=== PATIENT | female | born 1960 | race African-American/Black ===

== ENCOUNTER 2018-10-08 10:00 | Inpatient (IN) | payer OTHER, MEDICAID ==
[~2018-10-08] VITALS: Ht 165.1 cm; Wt 152.0 kg
[2018-10-08 10:00] VITALS: BP 154/114
--- NOTE | 2018-10-08 10:07 | NUR ---
1869-- DR. SANTOS BEDSIDE
--- NOTE | 2018-10-08 10:07 | NUR ---
1001-- PT BIBA ALS TO ER BED 7
[2018-10-08] MEDS ORDERED: ONDANSETRON 4 MG/2 ML VIAL IVP ONE (10:10)
[2018-10-08] MEDS ORDERED: fentaNYL 0.05 MG/ML VIAL IVP ONE (10:10)
[2018-10-08] MEDS ORDERED: NACL 0.9% 1,000 ML IV ONE (10:10)
--- NOTE | 2018-10-08 10:15 | NUR ---
BIBA W C/O L FLANK PAIN 10/10, SHARP, STARTING ABOUT 1 HOUR AGO. PER PT, SHE HAD TO CLIMB OUT OF A WINDOW AT HOME AND FELL, AND LANDED ON A PROPANE TANK ON HER L SIDE. PT DENIES VOMITING/DIZZINESS. DENIES N/V/D; SKIN IS PINK/WARM/DRY; AAOX4 WITH EVEN BUT PT IS UNABLE TO AMBULATE; PT DENIES ANY FEVER, CP, SOB, OR COUGH AT THIS TIME; PATIENT STATES PAIN OF 10/10 AT THIS TIME; VSS; PATIENT POSITIONED FOR COMFORT; HOB ELEVATED; BEDRAILS UP X2; BED DOWN. ER MD MADE AWARE OF PT STATUS.
[2018-10-08 10:30] LABS: BASOPHILS # (AUTO) 0.1 K/uL (0.00-0.22); BASOPHILS % (AUTO) 0.5 % (0.0-2.0); EOSINOPHILS # (AUTO) 0.5 K/uL (0-0.4); EOSINOPHILS % (AUTO) 4.7 % (0.0-4.0); HEMATOCRIT 39.9 % (36-48); HEMOGLOBIN 13.1 g/dL (12.0-16.0); MEAN CORPUSCULAR HEMOGLOBIN 29 pg (27-31); MEAN CORPUSCULAR HGB CONC 33 g/dL (33-37); MEAN CORPUSCULAR VOLUME 87.7 fL (80-94); MONOCYTES # (AUTO) 0.6 K/uL (0.8-1.0); MONOCYTES % (AUTO) 4.9 % (1.7-9.3); NEUTROPHILS # (AUTO) 8.4 K/uL (1.8-7.7); NEUTROPHILS % (AUTO) 72.9 % (42.2-75.2); PLATELET COUNT (AUTO) 326 K/uL (140-450); RED BLOOD CELL COUNT(AUTO) 4.55 MIL/uL (4.20-5.40); RED CELL DISTRIBUTION WIDTH 14.5 % (11.6-13.7); WHITE BLOOD COUNT (AUTO) 11.6 K/uL (4.8-10.8)
[2018-10-08 10:46] LABS: PROTHROMBIN TIME 9.5 secs (10.8-13.4)
[2018-10-08 10:47] LABS: ALBUMIN 3.4 g/dL (3.4-5.0); ANION GAP 13.1 (8-16); CARBON DIOXIDE 26.9 mmol/L (21-32); CREATININE 0.9 mg/dL (0.6-1.3); TOTAL BILIRUBIN 0.3 mg/dL (0.0-1.0)
--- NOTE | 2018-10-08 10:50 | NUR ---
IV 18GA RT A/C DONE, BLOOD SENT TO LAB, IVP/IVF GIVEN-NADR AT THIS TIME
[2018-10-08] MEDS ORDERED: diphenhydrAMINE 50 MG/ML VIAL IVP ONE (11:05)
[2018-10-08] MEDS ORDERED: MORPHINE SULFATE 4 MG/ML SYR IVP ONE ×2 (11:05→12:40)
--- NOTE | 2018-10-08 11:23 | NUR ---
PT TAKEN TO CT VIA ER BED
--- NOTE | 2018-10-08 11:45 | NUR ---
PT RETURNED FROM CT VIA ER BED
--- NOTE | 2018-10-08 12:15 | NUR ---
PT NOT TAKING DEEP BREATH S/P PT STS "I'M HAVING TO MUCH RIB PAIN" 02 2L VIA N/C ON.
[2018-10-08] MEDS ORDERED: DIAZEPAM 5 MG TAB PO ONE (14:05)
[2018-10-08] MEDS ORDERED: ACETAMINOPHEN 325 MG TAB PO PRN (14:10)
[2018-10-08] MEDS ORDERED: MORPHINE SULFATE 2 MG/ML SYR IVP PRN ×2 (14:10→17:50)
[2018-10-08] MEDS ORDERED: ONDANSETRON 4 MG/2 ML VIAL IM/IVP PRN (14:10)
[2018-10-08] MEDS: KETOROLAC 15 MG/ML VIAL IVP ONE ×2 (14:20→14:41)
[2018-10-08] MEDS ORDERED: CETI-32 PO (14:27)
[2018-10-08] MEDS ORDERED: FURO-572 PO (14:27)
[2018-10-08] MEDS ORDERED: POTA8TER12 PO (14:27)
[2018-10-08] MEDS ORDERED: CARV3.12 PO (14:27)
[2018-10-08] MEDS ORDERED: GABA100C PO (14:27)
[2018-10-08] MEDS ORDERED: LEVEMIR SUBQ ×2 (14:27→17:24)
[2018-10-08] MEDS ORDERED: ASPI81EC97 PO ×2 (14:27→17:28)
[2018-10-08] MEDS ORDERED: CETI10CT PO ×2 (14:27→17:28)
[2018-10-08] MEDS ORDERED: BUPR-10 PO (14:27)
[2018-10-08] MEDS ORDERED: FORM11 IH (14:27)
[2018-10-08] MEDS ORDERED: AMLO2.5T PO (14:27)
[2018-10-08] MEDS ORDERED: LOSA100T1 PO ×2 (14:27→17:24)
[2018-10-08] MEDS ORDERED: PRAV10TA4 PO (14:27)
[2018-10-08] MEDS ORDERED: CETI10TA73 PO (14:27)
--- NOTE | 2018-10-08 14:28 | NUR ---
ATTEMPTED TO CALL [facility] FOR ADMISSION. CHARGE NURSE IS BUSY, STATES WILL CALL BACK.
--- NOTE | 2018-10-08 15:05 | NUR ---
Patient will be admitted [facility]. Will go to room 119B. Belongings list completed. Report to SURJIT Steve.
--- NOTE | 2018-10-08 15:05 | NUR ---
RECEIVED REPORT FROM ED RN. PT IN STABLE CONDITION. AOX4. STATES TOLERABLE LEFT FLANK, RIB PAIN. SKIN INTACT WITH SOME BRUISING. LUNGS CTAB. S1 AND S2 PRESENT, NO MURMURS. BED LOCKED & LOW, CALL LIGHT WITHIN REACH. ALL SAFETY PRECAUTIONS IN PLACE, WILL CONTINUE TO MONITOR.
[2018-10-08 15:23] LABS: CHOL/HDL RATIO 2.8 (1-4.5); MAGNESIUM 1.7 mg/dL (1.8-2.4); PHOSPHORUS 3.1 mg/dL (2.5-4.9)
[2018-10-08] MEDS: NACL 0.9% 1,000 ML IV SCH (15:30)
[2018-10-08] MEDS ORDERED: DEXTROSE 50% 50 ML SYR IVP PRN (15:40)
[2018-10-08] MEDS ORDERED: MAGNESIUM OXIDE 400 MG TAB PO ONE (15:40)
--- NOTE | 2018-10-08 15:57 | NUR ---
INFORMED NO DIET ORDERS. IS INPUTTING ADMIT ORDERS NOW.
[2018-10-08] MEDS: BLOOD GLUCOSE MONITORING 1 DEV DEV FS SCH ×2 (16:38→21:06)
--- NOTE | 2018-10-08 16:38 | NUR ---
ASKED HOUSE SUP TO BRING K PAD.
--- NOTE | 2018-10-08 17:09 | NUR ---
PATIENT STATES PAIN LEVEL OF 5/10 WHEN SHE IS NOT MOVING, REFUSED PAIN MEDICATION. STATES SHE DOES NOT LIKE TAKING MEDICATION.
[2018-10-08 17:16] LABS: APPEARANCE,URINE CLEAR (CLEAR); BILIRUBIN,URINE NEGATIVE (NEGATIVE); BLOOD, URINE NEGATIVE (NEGATIVE); COLOR,URINE YELLOW (YELLOW); LEUKOCYTE ESTERASE ,URINE NEGATIVE (NEGATIVE); NITRITE, URINE NEGATIVE (NEGATIVE); PH,URINE 7.5 (5.0-9.0); UGLUCOSE NEGATIVE (NEGATIVE)
[2018-10-08 17:24] LABS: BARBITURATE, URINE NEG. ng/ml (NEG <=200); BENZODIAZEPINE, URINE NEG. ng/mL (NEG <=200); CANNABINOID, URINE NEG. ng/mL (NEG <=50); COCAINE, URINE NEG. ng/mL (NEG <=300); OPIATE, URINE POS. ng/mL (NEG <=2000); PHENCYCLIDINE SCREEN,URINE NEG. ng/mL (NEG <=25)
[2018-10-08] MEDS ORDERED: AMLO10TA PO (17:24)
[2018-10-08] MEDS ORDERED: GABA600T11 PO (17:24)
[2018-10-08] MEDS ORDERED: POTA10TE30 PO (17:24)
[2018-10-08] MEDS ORDERED: MONT10TA35 PO (17:24)
[2018-10-08] MEDS ORDERED: TIZA4TAB5 PO (17:24)
[2018-10-08] MEDS ORDERED: CARV25TA PO (17:24)
[2018-10-08] MEDS ORDERED: BUPR300T70 PO (17:24)
[2018-10-08] MEDS ORDERED: FURO-570 PO (17:24)
[2018-10-08] MEDS ORDERED: DOCU-299 PO (17:24)
[2018-10-08] MEDS ORDERED: OXYC10TA43 PO (17:24)
[2018-10-08] MEDS ORDERED: METF1000 PO (17:24)
[2018-10-08] MEDS ORDERED: ALBU-118 IH (17:24)
[2018-10-08] MEDS ORDERED: FORM1 IH (17:24)
[2018-10-08] MEDS ORDERED: PRAV40TA1 PO (17:24)
[2018-10-08] MEDS ORDERED: ALBUTEROL SULFATE/IPRATROPIU 3 ML SOL IH PRN (17:30)
[2018-10-08 17:58] LABS: RBC,URINE 0-5 /HPF (0-5); WBC,URINE NONE SEEN /HPF (0-5)
--- NOTE | 2018-10-08 18:52 | NUR ---
PT IS UNABLE TO DO IS DUE TO PAIN ON HER SIDE IS IS AT BEDSIDE
--- NOTE | 2018-10-08 18:58 | NUR ---
PHARMACIST CALLED, WANTS PT TO BRING HOME MEDS DULERA, CETIRIZINE, WELLBUTRIN XL. WILL ENDORSE.
--- NOTE | 2018-10-08 19:22 | NUR ---
ENDORSED POC TO OPHTHALMIC TECHNICIAN SURJIT HATHAWAY. PT IN STABLE CONDITION.
[2018-10-08] MEDS: HYDROcodone/APAP 5/325 MG 1 TAB TAB PO PRN (19:23)
--- NOTE | 2018-10-08 19:23 | NUR ---
REPORT RECEIVED FROM AM NURSE AT BEDSIDE. PT IN STABLE CONDITION. AAOX4. INTRODUCED SELF TO PT. BOARD UPDATED. NO COMPLAINTS OF PAIN. ALREADY MEDICATED. NO SOB. AFEBRILE. PT IS AMBULATORY WITH ASSIST. IV SITE L AC 22G RUNNING NS@60ML/HR PATENT AND INTACT. SKIN WARM, DRY, AND INTACT WITH NO OPEN WOUNDS. BED LOCKED IN LOW POSITION. CALL VELIZ WITHIN REACH. SAFETY PRECAUTION IN PLACE. ALL NEEDS MET AT THIS TIME.
[2018-10-08 20:00] VITALS: BP 130/76
[2018-10-08] MEDS ORDERED: NON-FORMULARY ITEM (Mometasone/Formoterol (Dulera 200 Mcg/5 Mcg Inhaler) 2 PUFF) IH SCH (21:00)
[2018-10-08] MEDS: SIMVASTATIN 20 MG TAB PO SCH (21:06)
[2018-10-08] MEDS: CARVEDILOL 12.5 MG TAB PO SCH (21:06)
[2018-10-08] MEDS: metFORMIN 500 MG TAB PO SCH (21:07)
[2018-10-08] MEDS: oxyCODONE 10 MG TABER PO SCH (21:08)
[2018-10-08] MEDS: DOCUSATE SODIUM 100 MG GELCAP PO SCH (21:08)
[2018-10-08] MEDS: tiZANidine 4 MG TAB PO SCH (21:08)
[2018-10-08] MEDS: amLODIPine 5 MG TAB PO SCH (21:08)
--- NOTE | 2018-10-08 21:08 | NUR ---
COLACE, COREG, GLUCOPHAGE, NORVASC, OXYCONTIN, ZANAFLEX, AND ZOCOR GIVEN PO. BS 239. 4 UNITS OF HUMALOG GIVEN. 50 UNITS OF LANTUS GIVEN SUBQ. HEPARIN GIVEN SUBQ. PT TOLERATED WELL.
[2018-10-08] MEDS: INSULIN LANTUS 100 UNITS/ML 10 ML VIAL SUBQ SCH (21:16)
[2018-10-08] MEDS: INSULIN LISPRO SLIDING SCALE 100 UNITS/ML VIAL SUBQ PRN (21:16)
--- NOTE | 2018-10-08 22:45 | NUR ---
PT LAYING IN BED WATCHING TV. NO S/S OF DISTRESS NOTED. WILL CONTINUE TO MONITOR.
--- NOTE | 2018-10-08 23:45 | NUR ---
PT LAYING IN BED WATCHING TV. NO S/S OF DISTRESS NOTED. RESPIRATIONS EVEN, UNLABORED, AND WNL. WILL CONTINUE TO MONITOR.
--- NOTE | 2018-10-09 01:30 | NUR ---
PT HAS COMPLAINTS OF PAIN. MD NOTIFIED. AWAITING ORDERS.
--- NOTE | 2018-10-09 01:41 | NUR ---
PT COMPLAINT OF WHEEZING LAYING DOWN. WAS HESITANT TO TAKE HHN TX DUE TO POTENTIAL COUGH AND PAIN DUE TO INJURY. DECIDED TO USE HER INHALER INSTEAD AND SIT UP IN BED. SHE STATED SHE DDINT HEAR THE WHEEZING ANYMORE AND HER 2 INHALER ACTUATIONS MADE HER FEEL BETTER. I TOLD HER IF SHE FELT WORSE AND NEEDED THE HHN TX TO CALL AND ID COME SEE HER RIGHT AWAY. PT IN NO DISTRESS AT THIS TIME ON ROOM AIR. SPO2 96%.
[2018-10-09] MEDS: HYDROcodone/APAP 5/325 MG 1 TAB TAB PO PRN ×3 (02:15→21:10)
--- NOTE | 2018-10-09 02:15 | NUR ---
BENADRYL GIVEN FOR ITCHINESS PO. NORCO GIVEN FOR 6/10 GENERALIZED PAIN. PT TOLERATED WELL.
--- NOTE | 2018-10-09 05:10 | NUR ---
PT COMPLAINTS THAT SHE IS STILL ITCHY AND USUALLY TAKES 50MG OF BENADRYL. MD NOTIFIED. AWAITING NEW ORDERS.
[2018-10-09] MEDS: BLOOD GLUCOSE MONITORING 1 DEV DEV FS SCH ×4 (05:13→21:38)
[2018-10-09] MEDS: diphenhydrAMINE 50 MG CAP PO PRN ×2 (05:31→17:14)
--- NOTE | 2018-10-09 05:31 | NUR ---
MD GAVE OK TO GIVE BENADRYL 50MG PO. BS 196. 4 UNITS OF HUMALOG GIVEN. OXY GIVEN PO FOR PAIN. PT TOLERATED WELL.
[2018-10-09] MEDS: oxyCODONE 10 MG TABER PO SCH ×3 (05:32→21:29)
[2018-10-09] MEDS: INSULIN LISPRO SLIDING SCALE 100 UNITS/ML VIAL SUBQ PRN (05:33)
[2018-10-09 06:43] LABS: ANION GAP 14.6 (8-16); CARBON DIOXIDE 26.4 mmol/L (21-32); CREATININE 1.1 mg/dL (0.6-1.3)
[2018-10-09 06:44] LABS: BASOPHILS % (AUTO) 0.5 % (0.0-2.0); EOSINOPHILS # (AUTO) 0.5 K/uL (0-0.4); HEMATOCRIT 35.4 % (36-48); HEMOGLOBIN 11.6 g/dL (12.0-16.0); LYMPHOCYTES # (AUTO) 2.7 K/uL (2.5-16.5); LYMPHOCYTES % (AUTO) 29.9 % (20.5-51.1); MEAN CORPUSCULAR HEMOGLOBIN 29 pg (27-31); MEAN CORPUSCULAR HGB CONC 33 g/dL (33-37); MEAN CORPUSCULAR VOLUME 88.1 fL (80-94); MONOCYTES # (AUTO) 0.7 K/uL (0.8-1.0); MONOCYTES % (AUTO) 7.7 % (1.7-9.3); NEUTROPHILS % (AUTO) 55.9 % (42.2-75.2); PLATELET COUNT (AUTO) 291 K/uL (140-450); RED BLOOD CELL COUNT(AUTO) 4.02 MIL/uL (4.20-5.40); RED CELL DISTRIBUTION WIDTH 14.3 % (11.6-13.7); WHITE BLOOD COUNT (AUTO) 8.9 K/uL (4.8-10.8)
[2018-10-09 06:59] LABS: MAGNESIUM 1.8 mg/dL (1.8-2.4); PHOSPHORUS 4.5 mg/dL (2.5-4.9)
--- NOTE | 2018-10-09 07:15 | NUR ---
REPORT GIVEN TO AM NURSE AT BEDSIDE. PT IN STABLE CONDITION.
--- NOTE | 2018-10-09 07:16 | NUR ---
RECEIVED REPORT FROM MULTISKILL OPERATOR NURSE LEVAR FOR CONTINUITY OF CARE. PT IN STABLE CONDITION. RESPIRATIONS EVEN AND UNLABORED. IV INTACT AND PATENT. BED IN LOW POSITION. BED ALARM ON. CALL LIGHT AT BEDSIDE. WILL CONTINUE TO MONITOR.
[2018-10-09 08:00] VITALS: BP 143/82
[2018-10-09] MEDS: tiZANidine 4 MG TAB PO SCH (09:00)
[2018-10-09] MEDS ORDERED: NON-FORMULARY ITEM (Pravastatin Sodium* (Pravachol*) 40 MG) PO SCH (09:00)
[2018-10-09] MEDS ORDERED: CETIRIZINE HCL 10 MG PO SCH (09:00)
--- NOTE | 2018-10-09 09:18 | NUR ---
PATIENT HAS BEEN SCREENED AND CATEGORIZED HIGH NUTRITION RISK. PATIENT WILL BE SEEN WITHIN 1-2 DAYS OF ADMISSION. 10/09/18LOS CASTRO MBA, RD
[2018-10-09] MEDS: DOCUSATE SODIUM 100 MG GELCAP PO SCH ×2 (09:35→21:46)
[2018-10-09] MEDS: metFORMIN 500 MG TAB PO SCH ×2 (09:38→21:10)
[2018-10-09] MEDS: POTASSIUM CHLORIDE 10 MEQ TABER PO SCH (09:39)
[2018-10-09] MEDS: GABAPENTIN 300 MG CAP PO SCH ×3 (09:39→17:14)
[2018-10-09] MEDS: buPROPion 150 MG TABER PO SCH (09:39)
[2018-10-09] MEDS: FUROSEMIDE 40 MG TAB PO SCH (09:39)
[2018-10-09] MEDS: CARVEDILOL 12.5 MG TAB PO SCH ×2 (09:40→21:28)
[2018-10-09] MEDS: ASPIRIN 81 MG TAB.CHEW PO SCH (09:40)
[2018-10-09] MEDS: LOSARTAN 50 MG TAB PO SCH (09:40)
[2018-10-09] MEDS: NACL 0.9% 1,000 ML IV SCH (09:41)
[2018-10-09] MEDS: MONTELUKAST SODIUM 10 MG TAB PO SCH (09:41)
--- NOTE | 2018-10-09 09:48 | NUR ---
GAVE ORDERED DUE MEDICATIONS AT THIS TIME. PT IN STABLE CONDITION. WILL CONTINUE TO MONITOR. FAMILY AT BEDSIDE.
[2018-10-09] MEDS: INSULIN LANTUS 100 UNITS/ML 10 ML VIAL SUBQ SCH ×2 (09:58→21:52)
--- NOTE | 2018-10-09 11:30 | NUR ---
PT IN STABLE CONDITION. FAMILY AT BEDSIDE. RESPIRATIONS EVEN AND UNLABORED. CALL LIGHT AT BEDSIDE. BED IN LOW POSITION. WILL CONTINUE TO MONITOR.
--- NOTE | 2018-10-09 12:01 | NUR ---
FNS TO REQUEST [employer] SANDWICH FOR LUNCH PER PT REQUEST.
[2018-10-09 12:48] LABS: BASOPHILS # (AUTO) 0.1 K/uL (0.00-0.22); BASOPHILS % (AUTO) 0.8 % (0.0-2.0); EOSINOPHILS # (AUTO) 0.5 K/uL (0-0.4); EOSINOPHILS % (AUTO) 6.7 % (0.0-4.0); HEMATOCRIT 35.9 % (36-48); HEMOGLOBIN 11.9 g/dL (12.0-16.0); LYMPHOCYTES # (AUTO) 2.8 K/uL (2.5-16.5); LYMPHOCYTES % (AUTO) 36.9 % (20.5-51.1); MEAN CORPUSCULAR HEMOGLOBIN 29 pg (27-31); MEAN CORPUSCULAR HGB CONC 33 g/dL (33-37); MEAN CORPUSCULAR VOLUME 87.8 fL (80-94); MONOCYTES # (AUTO) 0.5 K/uL (0.8-1.0); MONOCYTES % (AUTO) 6.7 % (1.7-9.3); NEUTROPHILS # (AUTO) 3.7 K/uL (1.8-7.7); NEUTROPHILS % (AUTO) 48.9 % (42.2-75.2); PLATELET COUNT (AUTO) 292 K/uL (140-450); RED BLOOD CELL COUNT(AUTO) 4.09 MIL/uL (4.20-5.40); RED CELL DISTRIBUTION WIDTH 14.2 % (11.6-13.7); WHITE BLOOD COUNT (AUTO) 7.6 K/uL (4.8-10.8)
--- NOTE | 2018-10-09 13:43 | NUR ---
ASSISTED TO BATHROOM AT THIS TIME. PT SLOW MOVING, TOLERATING WELL. WILL CONTINUE TO MONITOR. BED IN LOW POSITION AT THIS TIME. PT TENDS TO RAISE BED. EDUCATED PT ON THE IMPORTANCE OF SAFETY AND HAVING THE BED IN A LOW POSITION.
[2018-10-09] MEDS: METHOCARBAMOL 500 MG TAB PO SCH ×3 (13:46→21:30)
--- NOTE | 2018-10-09 15:33 | NUR ---
ASSISTED PT TO RESTROOM. PT TOLERATED WELL. RESPIRATIONS EVEN AND UNLABORED. CALL LIGHT AT BEDSIDE. BED IN LOW POSITION. WILL CONTINUE TO MONITOR.
[2018-10-09 16:00] VITALS: BP 134/79
--- NOTE | 2018-10-09 17:30 | NUR ---
GAVE ORDERED DUE MEDICATIONS AT THIS TIME. PT TOLERATED WELL. RESPIRATIONS EVEN AND UNLABORED. CALL LIGHT AT BEDSIDE. BED IN LOW POSITION. WILL CONTINUE TO MONITOR.
--- NOTE | 2018-10-09 19:24 | NUR ---
GAVE REPORT TO STAIR BUILDER NURSE COLE FOR CONTINUITY OF CARE. PT IN STABLE CONDITION.
--- NOTE | 2018-10-09 19:24 | NUR ---
RECIEVED PT .AAOX4, NID ,WITH C/O FLANK PAIN ,IV SITE INTACT AND DRY , SKIN INTACT , BED IN LOW POSITION , SIDERAILS RAILS UP X2 ,CALL LIGHT WITHIN REACH ,PLAN OF CARE DISCUSSED AND VERBALIZED UNDERSTANDING . WILL CONTIUNE TO MONITOR.
--- NOTE | 2018-10-09 20:25 | NUR ---
RECEIVED PATIENT ON ROOM AIR, PULSE OX SAT 93%. NO SOB NOTED AT THIS TIME. PRN HHN NOT INDICATED AT THIS TIME. NO RESPIRATORY DISTRESS NOTED AT THIS TIME. WILL CONTINUE TO MONITOR.
--- NOTE | 2018-10-09 21:10 | NUR ---
NARCO GIVEN P.O ORDERED , V/S WNL ,CALL LIGHT WITHIN REACH ,WILL CONTINUE TO MONITOR.
[2018-10-09] MEDS: amLODIPine 5 MG TAB PO SCH (21:29)
[2018-10-09] MEDS: SIMVASTATIN 20 MG TAB PO SCH (21:46)
--- NOTE | 2018-10-09 22:10 | NUR ---
PAIN RE ASSESSMENT DONE - THE INTENSITY OF PAIN INCREASING PT.'S VERBALIZED , WILL MEDICATE TORADOL IV PUSH ORDERED , NID ,CALL LIGHT WITHIN REACH ,WILL CONTINUE TO MONITOR.
--- NOTE | 2018-10-09 22:30 | NUR ---
TORADOL GIVEN ORDERED FOR PAIN , NID , WILL CONTINUE TO MONITOR , IVF INFUSING WELL , CALL LIGHT WITH IN REACH.
[2018-10-09] MEDS: KETOROLAC 15 MG/ML VIAL IVP PRN (22:31)
[2018-10-10] VITALS: BP 127/76
--- NOTE | 2018-10-10 | NUR ---
MADE ROUNDS , V/S WNL ,NID , NO FURTHER COMPLAIN MADE AT THIS TIME ,CALL LIGHT WITH IN REACH
--- NOTE | 2018-10-10 02:00 | NUR ---
MADE ROUNDS . PT. SLEEPING ON BED , CALL LIGHT WITHIN REACH
--- NOTE | 2018-10-10 04:00 | NUR ---
MADE ROUNDS ,V/S WNL ,NID , IV SITE DRY AND INTACT , VOIDED FREELY , CALL LIGHT WITHIN REACH ,WILL CONTINUE TO MONITOR.
[2018-10-10] MEDS: oxyCODONE 10 MG TABER PO SCH ×2 (05:42→12:37)
--- NOTE | 2018-10-10 06:00 | NUR ---
COMPLAINING OF PAIN , PAIN ASSESSSMENT DONE ,WILL MEDICATE ORDERED . CALL LIGHT WITHIN REACH ,WILL CONTINUE TO MONITOR .
--- NOTE | 2018-10-10 06:10 | NUR ---
TORADOL GIVEN ORDERED , CALL LIGHT WITHIN REACH ,WILL CONTINUE TO MONITOR . IVF INFUSING WELL.
[2018-10-10] MEDS: KETOROLAC 15 MG/ML VIAL IVP PRN (06:12)
[2018-10-10] MEDS: NACL 0.9% 1,000 ML IV SCH (06:13)
[2018-10-10] MEDS: BLOOD GLUCOSE MONITORING 1 DEV DEV FS SCH ×3 (06:49→11:44)
--- NOTE | 2018-10-10 07:00 | NUR ---
LATEST HGT 72MG/ML ,ORANGE JUICE AND COLA GIVEN ,WILL CONTINUE TO MONITOR ,CALL LIGHT WITHIN REACH.
--- NOTE | 2018-10-10 07:20 | NUR ---
ENDORSED TO AM SHIFT FOR CONTINUITY OF CARE.
--- NOTE | 2018-10-10 07:21 | NUR ---
RECEIVED ENDORSEMENT FROM SYSTEM SUPPORT DEVELOPER NURSE. PATIENT IS AAOX4, BARBADIAN SPEAKING. RESPIRATIONS ARE EVEN AND UNLABORED ON ROOM AIR. PATIENT DENIES ANY PAIN AT THIS TIME. LEFT AC 22G IV INTACT AND SL. PLAN OF CARE WAS REVIEWED WITH PATIENT. PATIENT VERBALIZED UNDERSTANDING. SAFETY MEASURES IN PLACE, CALL LIGHT WITHIN REACH.
[2018-10-10 07:27] LABS: ANION GAP 15.4 (8-16); BASOPHILS % (AUTO) 0.3 % (0.0-2.0); CARBON DIOXIDE 26.4 mmol/L (21-32); CREATININE 1.1 mg/dL (0.6-1.3); EOSINOPHILS # (AUTO) 0.5 K/uL (0-0.4); EOSINOPHILS % (AUTO) 6.1 % (0.0-4.0); HEMATOCRIT 35.1 % (36-48); HEMOGLOBIN 11.6 g/dL (12.0-16.0); LYMPHOCYTES # (AUTO) 2.9 K/uL (2.5-16.5); LYMPHOCYTES % (AUTO) 32.9 % (20.5-51.1); MEAN CORPUSCULAR HEMOGLOBIN 29 pg (27-31); MEAN CORPUSCULAR HGB CONC 33 g/dL (33-37); MEAN CORPUSCULAR VOLUME 88.4 fL (80-94); MONOCYTES # (AUTO) 0.6 K/uL (0.8-1.0); MONOCYTES % (AUTO) 6.8 % (1.7-9.3); NEUTROPHILS # (AUTO) 4.8 K/uL (1.8-7.7); NEUTROPHILS % (AUTO) 53.9 % (42.2-75.2); PLATELET COUNT (AUTO) 294 K/uL (140-450); POTASSIUM 3.8 mmol/L (3.5-5.1); RED BLOOD CELL COUNT(AUTO) 3.96 MIL/uL (4.20-5.40); RED CELL DISTRIBUTION WIDTH 14.2 % (11.6-13.7); WHITE BLOOD COUNT (AUTO) 8.8 K/uL (4.8-10.8)
[2018-10-10 08:00] VITALS: BP 161/89
[2018-10-10] MEDS ORDERED: METH750T5 PO (08:59)
[2018-10-10] MEDS: INSULIN LANTUS 100 UNITS/ML 10 ML VIAL SUBQ SCH ×2 (09:00→11:40)
--- NOTE | 2018-10-10 09:50 | NUR ---
ADMINISTERED SCHEDULED MEDICATIONS. PATIENT TOLERATED WELL. NO OTHER NEEDS AT THIS TIME, WILL CONTINUE TO MONITOR.
[2018-10-10] MEDS: DOCUSATE SODIUM 100 MG GELCAP PO SCH (09:55)
[2018-10-10] MEDS: diphenhydrAMINE 50 MG CAP PO PRN (09:55)
[2018-10-10] MEDS: metFORMIN 500 MG TAB PO SCH (09:55)
--- NOTE | 2018-10-10 09:55 | NUR ---
HELD FE GOLDSTEIN MD FOR BLOOD SUGAR 72.
[2018-10-10] MEDS: METHOCARBAMOL 500 MG TAB PO SCH ×2 (09:56→12:37)
[2018-10-10] MEDS: POTASSIUM CHLORIDE 10 MEQ TABER PO SCH (09:56)
[2018-10-10] MEDS: GABAPENTIN 300 MG CAP PO SCH ×2 (09:56→12:37)
[2018-10-10] MEDS: HYDROcodone/APAP 5/325 MG 1 TAB TAB PO PRN (09:57)
[2018-10-10] MEDS: FUROSEMIDE 40 MG TAB PO SCH (09:57)
[2018-10-10] MEDS: buPROPion 150 MG TABER PO SCH (09:57)
[2018-10-10] MEDS: CARVEDILOL 12.5 MG TAB PO SCH (09:57)
[2018-10-10] MEDS: MONTELUKAST SODIUM 10 MG TAB PO SCH (09:58)
[2018-10-10] MEDS: LOSARTAN 50 MG TAB PO SCH (09:58)
[2018-10-10] MEDS: ASPIRIN 81 MG TAB.CHEW PO SCH (09:58)
--- NOTE | 2018-10-10 09:58 | NUR ---
IV SITE BLEEDING. REMOVED IV, CANNULA INTACT WITH MINIMAL BLEEDING. PATIENT TOLERATED WELL.
[2018-10-10] MEDS ORDERED: KETOROLAC 15 MG/ML VIAL IM SCH (10:00)
[2018-10-10] MEDS: INSULIN LISPRO SLIDING SCALE 100 UNITS/ML VIAL SUBQ PRN (11:50)
--- NOTE | 2018-10-10 11:50 | NUR ---
ADMINISTERED LANTIS. GAVE OK TO GIVE. ADDRESSED CONCERNS OF PATIENT DUE TO HER MOBILITY. ASKED DR TO COME IN TO FURTHER DISCUSS. NO OTHER NEEDS AT THIS TIME, WILL CONTINUE TO MONITOR.
--- NOTE | 2018-10-10 11:50 | NUR ---
ADMINISTERED SCHEDULED MEDICATIONS. PATIENT TOLERATED WELL. NO OTHER NEEDS AT THIS TIME, WILL CONTINUE TO MONITOR.
--- NOTE | 2018-10-10 12:40 | NUR ---
ADMINISTERED SCHEDULED MEDICATIONS. PATIENT TOLERATED WELL. NO OTHER NEEDS AT THIS TIME, WILL CONTINUE TO MONITOR.
--- NOTE | 2018-10-10 14:10 | NUR ---
PATIENT RESTING IN BED, FAMILY PRESENT AT BEDSIDE. STATES PAIN IS AT TOLERABLE LEVEL. NO OTHER NEEDS AT THIS TIME, WILL CONTINUE TO MONITOR.
--- NOTE | 2018-10-10 15:19 | NUR ---
SHERLYN received phone call from Kayley from [facility] Aguilar. Kayley provided SW the following facilities for patient: [facility] [phone] [facility] [phone] [facility] [phone] [facility] [phone] [facility] [phone] [facility] [phone] SW spoke to patient and patient refused SNF. SHERLYN spoke with SURJIT Aburto who stated that patient would be open to home health. SHERLYN called Kayley. Kayley provided contact information to Aleksandra - Vacuum Drier Operator for [facility]. Aleksandra provided the following home healths: [facility] [phone]; Faxed to [phone] [facility] [phone]; Facility does not take [facility] [place] [phone]; ; Odette stated they are unable to take patient due to insurance. [facility] [phone]; ; Spoke to Rosas. Rosas stated she will call back after reviewing clinicals. SHERLYN/KIMO will follow up as needed.
--- NOTE | 2018-10-10 15:32 | NUR ---
SHERLYN was called my Lue who said that [facility] would be able to take patient. Nicolettee stated that she verified patient's eligibility and insurance and patient was clear to receive services at daughter's address: [address] [place] [address]. SHERLYN/KIMO will follow up as needed.
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
--- NOTE | 2018-10-10 16:15 | NUR ---
GAVE PATIENT DISCHARGE INSTRUCTIONS. PROVIDED INFORMATION ON HOME HEALTH CARE. PROVIDED INFORMATION ON MEDICATIONS. PATIENT CONCERNED ABOUT PAIN CONTROL. CALLED DR. BERGERON TO GO OVER CONCERNS. PENDING PRESCRIPTION FOR DISCHARGE.
--- NOTE | 2018-10-10 17:45 | NUR ---
PATIENT ESCORTED OFF UNIT VIA WHEELCHAIR. PRESCRIPTION GIVEN TO HER. ALL BELONGINGS LEFT WITH PATIENT. ALL CONCERNS AND QUESTIONS WERE ANSWERED. PATIENT IS STABLE AT THIS TIME.
== END 2018-10-10 23:48 | disposition home health service (06) | DRG 391 ==
LOC: MED 10:00 → MTU 14:16
PROVIDERS: ADMIT General Practice; ATTEND General Practice
DX: R10.9 Unspecified abdominal pain (principal); E43 Unspecified severe protein-calorie malnutrition; D68.59 Other primary thrombophilia; Z68.43 Body mass index [BMI] 50.0-59.9, adult; I11.0 Hypertensive heart disease with heart failure; W17.89XA Other fall from one level to another, initial encounter; E83.42 Hypomagnesemia; M43.10 Spondylolisthesis, site unspecified; J44.9 Chronic obstructive pulmonary disease, unspecified; F32.9 Major depressive disorder, single episode, unspecified; E11.21 Type 2 diabetes mellitus with diabetic nephropathy; F43.9 Reaction to severe stress, unspecified; E11.40 Type 2 diabetes mellitus with diabetic neuropathy, unspecified; E11.51 Type 2 diabetes mellitus with diabetic peripheral angiopathy without gangrene; R16.0 Hepatomegaly, not elsewhere classified; E66.01 Morbid (severe) obesity due to excess calories; M62.838 Other muscle spasm; E78.5 Hyperlipidemia, unspecified; G89.4 Chronic pain syndrome; I50.9 Heart failure, unspecified; D64.9 Anemia, unspecified; Y93.39 Activity, other involving climbing, rappelling and jumping off; Y92.89 Other specified places as the place of occurrence of the external cause; Y99.8 Other external cause status; Z98.891 History of uterine scar from previous surgery; Z90.710 Acquired absence of both cervix and uterus; Z79.899 Other long term (current) drug therapy
CPT/HCPCS: 36415; 71045; 80048; 80053; 80305; 81001; 82948; 83036; 83735; 83880; 84100; 84134; 84443; 85025; 85610; 85730; 87081; 93925; 93970; 96361; 96374; 96375; 96376; 97161-GP; 97530; 99285; J1200; J1644; J1815; J1885; J2270; J2405; J3010; J7030; J7620; Q0092; Q0163; Q9967

== ENCOUNTER 2018-10-10 23:02 | Inpatient (IN) | payer OTHER, MEDICAID ==
[~2018-10-10] VITALS: Ht 175.3 cm; Wt 100.2 kg
[~2018-10-10 23:02] MED LIST: ALBU-118 IH; AMLO10TA PO; ASPI81EC97 PO; BUPR300T70 PO; CARV25TA PO; CETI10CT PO; DOCU-299 PO; FORM1 IH; FURO-570 PO; GABA600T11 PO; LEVEMIR SUBQ; LOSA100T1 PO; METF1000 PO; METH750T5 PO; MONT10TA35 PO; OXYC10TA43 PO; POTA10TE30 PO; PRAV40TA1 PO; TIZA4TAB5 PO
[2018-10-10 23:06] VITALS: BP 164/71
--- NOTE | 2018-10-10 23:06 | NUR ---
PT BIBA BLS TO ER BED 1
--- NOTE | 2018-10-10 23:10 | NUR ---
PT AMBULATED FROM GURNEY TO BED WITH SLOW AND STEADY GAIT.
--- NOTE | 2018-10-10 23:20 | NUR ---
58 YO F BIBA FROM HOME FOR 10/10 LEFT SIDE RIB PAIN THAT RADIATES INTO LOWER BACK. PT WAS DISCHARGED FROM [facility] TODAY S/P FALL 3 DAYS AGO. PT STATES SHE FELL FROM 1ST STORY WINDOW ONTO PROPANE TANK. SHE WAS SEEN IN ED AND WAS ADMITTED FOR UNCONTROLLED PAIN. PT WAS SENT HOME WITH RX FOR OXYCONTIN BUT STATES SHE HAS BEEN UNABLE TO FILL IT D/T ALREADY RECEIVING PERCOCET FROM PAIN MANAGEMENT DOCTOR. PT HAS SIGNIFICANT BRUISING TO LEFT SIDE RIB CAGE. -- PT AWAKE, ALERT, COOPERATIVE. CRIES OUT IN PAIN DURING MOVEMENT. ANSWERING QUESTIONS APPROPRIATELY. BEHAVIOR APPROPRIATE. -- SKIN NORMAL, WARM, DRY. BREATHING EVEN, UNLABORED. PMH-- DM, HTN, CHF, COPD, LEFT VENTRICULAR HYPERTROPHY
[2018-10-10] MEDS ORDERED: KETAMINE 10 MG/ML UD SYR **ER IVP ONE (23:25)
[2018-10-10] MEDS ORDERED: NACL 0.9% 1,000 ML IV ONE (23:25)
[2018-10-10] MEDS ORDERED: ONDANSETRON 4 MG/2 ML VIAL IVP ONE (23:25)
[2018-10-10] MEDS ORDERED: MORPHINE SULFATE 4 MG/ML SYR IVP ONE (23:25)
[2018-10-11] MEDS ORDERED: KETOROLAC 15 MG/ML VIAL IVP ONE (00:40)
--- NOTE | 2018-10-11 01:20 | NUR ---
PT AMBULATED TO WITH SLOW AND STEADY GAIT.
[2018-10-11] MEDS ORDERED: MORPHINE SULFATE 4 MG/ML SYR IVP ONE (02:30)
[2018-10-11] MEDS ORDERED: ONDANSETRON 4 MG/2 ML VIAL IVP ONE (02:30)
--- NOTE | 2018-10-11 02:30 | NUR ---
PT IS SITTING ON EDGE OF BED WITH FLUIDS RUNNING RESTING CALM AND COMFORTABLY. PT STATES PAIN IS AT 4/10 WHILE SITTING STILL AND 7/10 WITH MOVEMENT. VSS. SKIN NORMAL, DRY, WARM. BREATHING EVEN, UNLABORED.
[2018-10-11] MEDS ORDERED: ONDANSETRON 4 MG/2 ML VIAL IM/IVP PRN (02:45)
[2018-10-11] MEDS ORDERED: MORPHINE SULFATE 2 MG/ML SYR IVP PRN (02:45)
[2018-10-11] MEDS ORDERED: ACETAMINOPHEN 325 MG TAB PO PRN (02:45)
[2018-10-11] MEDS ORDERED: HYDROcodone/APAP 5/325 MG 1 TAB TAB PO PRN (02:45)
[2018-10-11] MEDS ORDERED: DOCUSATE SODIUM 100 MG GELCAP PO PRN (02:45)
--- NOTE | 2018-10-11 03:05 | NUR ---
LAB AT BEDSIDE.
--- NOTE | 2018-10-11 03:05 | NUR ---
RESIDENT EVALUATING AT BEDSIDE.
--- NOTE | 2018-10-11 03:15 | NUR ---
Patient will be admitted to care of DR. RODRIGUEZ. Admited to MS. Will go to room 121A. Belongings list completed. Report to SURJIT Marcial.
--- NOTE | 2018-10-11 03:15 | NUR ---
RECEIVED BEDSIDE REPORT WET SUIT GLUER. PT IS AAOX4. ON ROOM AIR RESPIRATIONS ARE EQUAL AND UNLABORED. SKIN IS INTACT HAS BRUISE ON LEFT FLANK S/P FALL X3DAYS AGO. STATES PAIN A 5/10 AT THIS TIME. TOLERABLE. IV ON RAC 22G 1L NS BOLUS INFUSING. PT AMBULATORY BUT HAS PAIN WITH MOVEMENT. PT REFUSING GOWN AT THIS TIME D/T PAIN WITH MOVEMENT. MRSA SWAB OBTAINED. PLAN OF CARE DISCUSSED WITH PT. VS STABLE: 130/70 HR 70 RR 18 97.6. ORIENTED PATIENT TO ROOM,STAFF AND VISITING HOURS. CALL LIGHT IS WITHIN REACH. WILL ROUND FREQUENTLY.
[2018-10-11] MEDS ORDERED: INSULIN LISPRO SLIDING SCALE 100 UNITS/ML VIAL SUBQ PRN (03:20)
[2018-10-11 03:30] VITALS: BP 130/70
[2018-10-11] MEDS ORDERED: ALBUTEROL SULFATE/IPRATROPIU 3 ML SOL IH PRN (03:30)
[2018-10-11 03:43] LABS: PROTHROMBIN TIME 9.3 secs (10.8-13.4)
[2018-10-11 03:44] LABS: MEAN CORPUSCULAR HEMOGLOBIN 29 pg (27-31)
[2018-10-11 03:46] LABS: HEMATOCRIT 35.9 % (36-48); HEMOGLOBIN 11.7 g/dL (12.0-16.0); MEAN CORPUSCULAR HGB CONC 33 g/dL (33-37); MEAN CORPUSCULAR VOLUME 88.2 fL (80-94); PLATELET COUNT (AUTO) 223 K/uL (140-450); RED BLOOD CELL COUNT(AUTO) 4.07 MIL/uL (4.20-5.40); RED CELL DISTRIBUTION WIDTH 14.2 % (11.6-13.7); WHITE BLOOD COUNT (AUTO) 13.2 K/uL (4.8-10.8)
[2018-10-11 03:51] LABS: ANION GAP 11.7 (8-16); CARBON DIOXIDE 27.6 mmol/L (21-32); CREATININE 1.1 mg/dL (0.6-1.3); EOSINOPHILS % (MANUAL) 6 % (0-4); LYMPHOCYTES % (MANUAL) 25 % (20-46); MONOCYTES % (MANUAL) 4 % (5-12); POTASSIUM 4.3 mmol/L (3.5-5.1)
[2018-10-11 03:54] LABS: MAGNESIUM 1.7 mg/dL (1.8-2.4); PHOSPHORUS 4.4 mg/dL (2.5-4.9)
[2018-10-11] MEDS ORDERED: MAGNESIUM OXIDE 400 MG TAB PO ONE (04:00)
[2018-10-11] MEDS: GABAPENTIN 300 MG CAP PO SCH ×3 (04:16→20:47)
--- NOTE | 2018-10-11 04:16 | NUR ---
SCHEDULED MEDICATIONS GIVEN. MG OX 800MG PER ORDERS. PT TOLERATED WELL. CALL LIGHT IS WITHIN REACH. WILL CONTINUE TO MONITOR.
[2018-10-11] MEDS: oxyCODONE 10 MG TABER PO SCH ×3 (04:17→20:46)
[2018-10-11] MEDS: NACL 0.9% 1,000 ML IV SCH ×2 (04:20→18:09)
[2018-10-11] MEDS ORDERED: MAGNESIUM OXIDE 400 MG TAB ONE (04:24)
[2018-10-11] MEDS ORDERED: MAGNESIUM OXIDE 400 MG TAB PO SCH ×2 (04:30→18:00)
[2018-10-11] MEDS: BLOOD GLUCOSE MONITORING 1 DEV DEV FS SCH ×4 (05:27→20:06)
--- NOTE | 2018-10-11 05:32 | NUR ---
BLOOD GLUCOSE 103 NO COVERAGE NEEDED. PATIENT WITH APPLE JUICE ON BEDSIDE TABLE. CALL LIGHT IS WITHIN REACH. WILL CONTINUE TO MONITOR.
--- NOTE | 2018-10-11 07:05 | NUR ---
GAVE BEDSIDE REPORT TO DAY SHIFT RN. PT ENDORSED IN STABLE CONDITION.
--- NOTE | 2018-10-11 07:06 | NUR ---
RECEIVED BEDSIDE REPORT FROM NIGHT NURSE. PT IS BREATHING ON RA WITH SNORING WHILE SLEEPING, AROUSABLE TO NAME AND BREATHING THEN UNLABORED WITH NO SNORING. OXYGEN SATURATION 99% ON ROOM AIR. PT HAS A RIGHT ANTECUBITAL IV THAT IS INFUSING NORMAL SALINE AT 60ML/HR. ALL SAFETY MEASURES IN PLACE WITH CALL LIGHT WITHIN REACH, PT AOX4.
[2018-10-11 08:00] VITALS: BP 131/97
[2018-10-11] MEDS: LOSARTAN 50 MG TAB PO SCH (08:45)
[2018-10-11] MEDS: metFORMIN 500 MG TAB PO SCH ×2 (08:46→16:11)
[2018-10-11] MEDS: buPROPion 150 MG TABER PO SCH (08:46)
[2018-10-11] MEDS: METHOCARBAMOL 500 MG TAB PO SCH ×4 (08:46→20:47)
[2018-10-11] MEDS: MONTELUKAST SODIUM 10 MG TAB PO SCH (08:46)
[2018-10-11] MEDS: CARVEDILOL 12.5 MG TAB PO SCH ×2 (08:47→20:57)
[2018-10-11] MEDS: FUROSEMIDE 40 MG TAB PO SCH (08:47)
[2018-10-11] MEDS: ASPIRIN 81 MG TAB.CHEW PO SCH (08:47)
[2018-10-11] MEDS: DOCUSATE SODIUM 100 MG GELCAP PO SCH ×2 (08:47→20:47)
[2018-10-11] MEDS: ATORVASTATIN 20 MG TAB PO SCH (08:47)
[2018-10-11] MEDS: INSULIN LANTUS 100 UNITS/ML 10 ML VIAL SUBQ SCH ×2 (08:52→20:58)
--- NOTE | 2018-10-11 09:00 | NUR ---
PT STATES SHE IS FEELING TIRED WAS REQUESTING HER BLOOD SUGAR BE TAKEN FOUND TO BE 129 ON POC.
--- NOTE | 2018-10-11 09:05 | NUR ---
ADMINISTERED MEDICATIONS REVIEWED INDICATIONS PT HAS NO DISTRESS AT THIS TIME NO LABORED BREATHING.
[2018-10-11] MEDS: LIDOCAINE 5% 1 EA PATCH TP SCH (10:00)
--- NOTE | 2018-10-11 10:08 | NUR ---
ADMINISTERED LIDOCAINE PATCH THAT WAS BROUGHT BY PHARMACY. PT HAS NO OTHER REQUESTS BUT A DIET COLA WHICH I BROUGHT HER. NO OBVIOUS SIGNS OF DISTRESS.
--- NOTE | 2018-10-11 11:02 | NUR ---
PT SITTING UP IN BED ON PHONE NO DISTRESS BREATHING UNLABORED.
--- NOTE | 2018-10-11 11:05 | NUR ---
Primary Care Coordinator Note: Per , patient is now in agreement with snf placement. She was not in agreement during previous hospital admission at our hospital. I faxed inquiry to [facility] per 's request. Per Shanti from [facility] , they will not be able to verify patient's health insurance on weekend, have to wait until Saturday, I informed of this. Per , Manager Php and/or Construction Trades Contractor can follow up with [facility] on Saturday10/13/18.
--- NOTE | 2018-10-11 12:25 | NUR ---
ASSISTED PT UP IN BED AND ADMINISTERED MEDICATION INCLUDING SCHEDULED PAIN MEDICATION.
[2018-10-11] MEDS: KETOROLAC 15 MG/ML VIAL IVP PRN ×2 (14:01→20:47)
--- NOTE | 2018-10-11 14:09 | NUR ---
PT COMPLAINING IV IS BOTHERING HER. MEETING RESISTANCE WHEN ATTEMPTING TO ASPIRATE OR FLUSH AND DISCOMFORT FOR PATIENT. IV REMOVED AND NEW ONE WILL BE INSERTED. Addendum: 10/11/18 at 1759 by Uli Steele RN CATHETER TIP INTACT OF REMOVED IV.
--- NOTE | 2018-10-11 14:28 | NUR ---
RIGHT AC IV REMOVED WITH CATHETER INTACT DUE TO INABILITY TO FLUSH OR ASPIRATE. IV STARTED ON THE RIGHT AC AND LEFT AC WELL BOTH 22 GAUGE SALINE FLUSHED.
--- NOTE | 2018-10-11 15:23 | NUR ---
PT SITTING UP IN BED RESTING. PT STATES PAIN IS TOLERABLE IF SHE DOESN'T MOVE A LOT AND IS DOING OKAY RIGHT NOW. PT HAS NO OBVIOUS DISTRESS AND BREATHING IS UNLABORED.
[2018-10-11] MEDS: MORPHINE SULFATE 2 MG/ML SYR IVP PRN (15:44)
--- NOTE | 2018-10-11 15:49 | NUR ---
ADMINISTERED PAIN MEDICATION PER PT REQUEST. NO OTHER REQUESTS OR OBVIOUS DISTRESS.
[2018-10-11 16:00] VITALS: BP 131/69
--- NOTE | 2018-10-11 16:14 | NUR ---
ADMINISTERED MEDICATIONS, PT SITTING UP IN BED STATING PAIN IS FEELING BETTER AND HAS NO REQUESTS OTHER THEN ICE AND WATER WHICH WAS BROUGHT FOR HER. NO OBVIOUS SIGNS OF DISTRESS.
--- NOTE | 2018-10-11 16:48 | NUR ---
PT RESTING IN BED WITHOUT DISTRESS. PT REQUESTS BED REMAIN ELEVATED AND NOT AT LOWEST LEVEL WHILE SHE IS IN IT. PT RECOGNIZES RISKS OF FALLING OUT BUT STATES SHE LIKES TO KEEP ELEVATING IT SO SHE CAN GET IN AND OUT EASIER DUE TO HER HEIGHT AND POSITIONING HER HIP TO LINE UP WITH THE BED FOR EASIER MOVEMENT.
--- NOTE | 2018-10-11 16:52 | NUR ---
SPOKE TO DR WARD REGARDING PT MAGNESIUM 1.7. INFORMED ME HE WILL PUT IN FURTHER ORDERS.
--- NOTE | 2018-10-11 17:27 | NUR ---
PT RESTING IN BED WITHOUT DISTRESS BREATHING UNLABORED. PT STATES THAT SHE OFTEN HAS THIS AFTER MORPHINE AND IT IS A COMMON SIDE EFFECT SHE HAS BUT IT IS NO INTOLERABLE AND SHE OFTEN TAKES MORPHINE AND IS AWARE OF THE SIDE EFFECT. PT HAS NO REDNESS OR HIVES AND DENIES ANY IRRITATION.
--- NOTE | 2018-10-11 17:58 | NUR ---
PT SITTING UP EATING ON EDGE OF BED WITHOUT DISTRESS. BREATHING UNLABORED.
--- NOTE | 2018-10-11 19:15 | NUR ---
GAVE BEDSIDE REPORT TO NIGHT NURSE. PT IN STABLE CONDITION AT THIS TIME.
--- NOTE | 2018-10-11 19:16 | NUR ---
RECEIVED BEDSIDE REPORT FROM DAY SHIFT NURSE. PT SLEEPING IN BED COMFORTABLY. BREATHING EVEN AND UNLABORED ON RA. IV SITE ON RAC, RUNNING WITH NS @ 60ML/HR, INTACT, PATENT, AND ASYMPTOMATIC. SKIN INTACT, WARM AND DRY TO TOUCH. ALL SAFETY MEASURES IN PLACE. BED IN LOW POSITION, CALL LIGHT WITHIN REACH.
--- NOTE | 2018-10-11 20:06 | NUR ---
BS CHECKED, 99, NO INSULIN COVERAGE NEEDED. WILL HOLD SCHEDULED LANTUS WELL. WILL CONTINUE TO MONITOR.
--- NOTE | 2018-10-11 20:47 | NUR ---
GIVEN NEURONTIN, OXYCONTIN, COLACE, ROBAXIN AND HEPARIN, PT C/O PAIN 11/15, GIVEN TORADOL, PT TOLERATED WELL. HELD COREG, NORVASC D/T DECREASED BP, 103/80 AND HELD LANTUS D/T DECREASED BS, 99. WILL CONTINUE TO MONITOR.
[2018-10-11] MEDS: amLODIPine 5 MG TAB PO SCH (20:57)
--- NOTE | 2018-10-11 22:55 | NUR ---
PT SLEEPING IN BED. BREATHING EVEN AND UNLABORED. WILL CONTINUE TO MONITOR.
[2018-10-12] VITALS: BP 120/62
--- NOTE | 2018-10-12 01:30 | NUR ---
PT AMBULATED TO RESTROOM AND DID BOWEL MOVEMENT.
[2018-10-12] MEDS: MORPHINE SULFATE 2 MG/ML SYR IVP PRN ×2 (02:18→23:50)
--- NOTE | 2018-10-12 02:18 | NUR ---
PT C/O 8 PAIN, GIVEN MORPHINE MD ORDERED. PT TOLERATED WELL. WILL CONTINUE TO MONITOR.
[2018-10-12] MEDS: KETOROLAC 15 MG/ML VIAL IVP PRN ×2 (04:04→12:59)
--- NOTE | 2018-10-12 04:04 | NUR ---
PT C/O 11/15 PAIN, GIVEN TORADOL DRHan ORDERED. PT TOLERATED WELL.
[2018-10-12] MEDS: GABAPENTIN 300 MG CAP PO SCH ×3 (05:13→23:01)
[2018-10-12] MEDS: oxyCODONE 10 MG TABER PO SCH ×3 (05:13→23:02)
[2018-10-12] MEDS: BLOOD GLUCOSE MONITORING 1 DEV DEV FS SCH ×4 (05:17→21:00)
--- NOTE | 2018-10-12 05:17 | NUR ---
BS CHECKED, 119. NO INSULIN COVERAGE NEEDED.
--- NOTE | 2018-10-12 06:11 | NUR ---
PATIENT HAS BEEN SCREENED AND CATEGORIZED HIGH NUTRITION RISK. PATIENT WILL BE SEEN WITHIN 1-2 DAYS OF ADMISSION. 10/12/18-10/13/18 XIOMARA SIMS MS, RDN
--- NOTE | 2018-10-12 07:17 | NUR ---
ENDORSED PT TO DAY SHIFT NURSE. PT IN STABLE CONDITION.
--- NOTE | 2018-10-12 07:19 | NUR ---
RECEIVED BEDSIDE REPORT FROM NIGHT NURSE. PT SITTING UP IN BED WITHOUT DISTRESS BREATHING UNLABORED. PT HAS A LEFT AND RIGHT ANTECUBITAL IVS BOTH ARE ASYMPTOMATIC AND PATENT. LEFT IV IS INFUSING NORMAL SALINE AT 60 ML/HR. ALL SAFETY MEASURES IN PLACE AND CALL LIGHT WITHIN REACH. PT IS AOX4.
[2018-10-12 08:00] VITALS: BP 133/46
[2018-10-12] MEDS: CARVEDILOL 12.5 MG TAB PO SCH ×2 (08:02→23:01)
[2018-10-12] MEDS: buPROPion 150 MG TABER PO SCH (08:02)
[2018-10-12] MEDS: ATORVASTATIN 20 MG TAB PO SCH (08:02)
[2018-10-12] MEDS: FUROSEMIDE 40 MG TAB PO SCH (08:03)
[2018-10-12] MEDS: METHOCARBAMOL 500 MG TAB PO SCH ×4 (08:03→23:08)
[2018-10-12] MEDS: MONTELUKAST SODIUM 10 MG TAB PO SCH (08:03)
[2018-10-12] MEDS: LOSARTAN 50 MG TAB PO SCH (08:03)
[2018-10-12] MEDS: DOCUSATE SODIUM 100 MG GELCAP PO SCH ×2 (08:03→23:00)
[2018-10-12] MEDS: ASPIRIN 81 MG TAB.CHEW PO SCH (08:04)
[2018-10-12] MEDS: LIDOCAINE 5% 1 EA PATCH TP SCH (08:04)
[2018-10-12] MEDS: metFORMIN 500 MG TAB PO SCH ×2 (08:04→17:09)
[2018-10-12] MEDS: INSULIN LANTUS 100 UNITS/ML 10 ML VIAL SUBQ SCH ×2 (08:08→23:21)
[2018-10-12 08:15] LABS: BASOPHILS % (AUTO) 0.2 % (0.0-2.0); EOSINOPHILS # (AUTO) 0.4 K/uL (0-0.4); EOSINOPHILS % (AUTO) 4.8 % (0.0-4.0); HEMATOCRIT 36.6 % (36-48); HEMOGLOBIN 11.9 g/dL (12.0-16.0); LYMPHOCYTES # (AUTO) 1.6 K/uL (2.5-16.5); LYMPHOCYTES % (AUTO) 20.8 % (20.5-51.1); MEAN CORPUSCULAR HEMOGLOBIN 29 pg (27-31); MEAN CORPUSCULAR HGB CONC 33 g/dL (33-37); MEAN CORPUSCULAR VOLUME 88.7 fL (80-94); MONOCYTES # (AUTO) 0.4 K/uL (0.8-1.0); MONOCYTES % (AUTO) 5.1 % (1.7-9.3); NEUTROPHILS # (AUTO) 5.2 K/uL (1.8-7.7); NEUTROPHILS % (AUTO) 69.1 % (42.2-75.2); PLATELET COUNT (AUTO) 293 K/uL (140-450); RED BLOOD CELL COUNT(AUTO) 4.13 MIL/uL (4.20-5.40); RED CELL DISTRIBUTION WIDTH 14.4 % (11.6-13.7); WHITE BLOOD COUNT (AUTO) 7.6 K/uL (4.8-10.8)
--- NOTE | 2018-10-12 08:30 | NUR ---
ADMINISTERED MEDICATIONS PT HAS NO DISTRESS OR REQUESTS AT THIS TIME.
[2018-10-12 09:20] LABS: CARBON DIOXIDE 23.3 mmol/L (21-32); CREATININE 1.2 mg/dL (0.6-1.3); POTASSIUM 4.3 mmol/L (3.5-5.1)
[2018-10-12 09:24] LABS: MAGNESIUM 1.7 mg/dL (1.8-2.4); PHOSPHORUS 4.2 mg/dL (2.5-4.9)
--- NOTE | 2018-10-12 10:30 | NUR ---
ADMINISTERED TYLENOL FOR PT HEADACHE PER HER REQUEST. NO OTHER REQUESTS ASIDE FROM A SANDWICH WHICH I ORDERED FROM [facility] FOR HER.
--- NOTE | 2018-10-12 11:00 | NUR ---
PT RESTING IN BED BREATHING UNLABORED.
[2018-10-12] MEDS: NACL 0.9% 1,000 ML IV SCH ×2 (11:47→17:14)
[2018-10-12] MEDS ORDERED: MAG SULF 2000 MG/WATER PREMIX 50 ML IV ONE (12:50)
--- NOTE | 2018-10-12 13:04 | NUR ---
PATIENT SITTING IN BED WITH COMPLAINTS OF PAIN, TORADOL GIVEN AT THIS TIME AND OTHER SCHEDULED MEDICATIONS DUE GIVEN. WILL CONTINUE TO MONITOR.
--- NOTE | 2018-10-12 13:52 | NUR ---
ADMINISTERED MEDICATIONS AFTER BEING BROUGHT UP FROM PHARMACY DUE TO PYXIS BEING CLOSED. PT IS RESTING IN BED NO DISTRESS OR REQUESTS.
--- NOTE | 2018-10-12 15:05 | NUR ---
PT RESTING IN BED SLEEPING BREATHING UNLABORED.
--- NOTE | 2018-10-12 15:45 | NUR ---
PT RESTING IN BED NO COMPLAINTS OR REQUESTS AT THIS TIME NO OBVIOUS SIGNS OF DISTRESS.
[2018-10-12 16:00] VITALS: BP 115/52
--- NOTE | 2018-10-12 17:09 | NUR ---
PT RESTING IN BED DAUGHTER AT BEDSIDE ADMINISTERED MEDICATIONS. NO REQUESTS PT WITHOUT DISTRESS.
--- NOTE | 2018-10-12 18:15 | NUR ---
PT RESTING IN BED WITH DAUGHTER AT BEDSIDE. BROUGHT WATER FOR PATIENT'S DAUGHTER, BOTH DENY ANY REQUESTS AND PT IS WITHOUT DISTRESS.
--- NOTE | 2018-10-12 19:28 | NUR ---
RECEIVED REPORT AT BEDSIDE FORM LUZ MARIA RN DAYSHIFT NURSE AT BEDSIDE FOR CONTINUITY OF CARE, PT IN STABLE CONDITION.
--- NOTE | 2018-10-12 19:28 | NUR ---
GAVE BEDSIDE REPORT PT IN STABLE CONDITION
--- NOTE | 2018-10-12 21:00 | NUR ---
PT IN BED ALL FALLS PRECAUTIONS IN PLACE. PT IS AOX4. SHE SAID THAT SHE IS IN PAIN BUT THAT IT IS TOLERABLE FOR B/P / NOW. R PT HAS SCHEDULED PAIN MEDS DUE AT THIS TIME. PT GIVEN NORVASC, COLACE, COREG AND GABAPENTIN WELL OXYCONTIN , ROBAXIN AND HEPARIN. ALL MEDS GIVEN ORDERED. PT FINGER STICK IS 128, NO COVERAGE OF HUMALOG NEEDED./ LANTUS ALSO GIVEN ORDERED. V/S FOLLOWS T 97.3 P 91 R 18 B/P 151/62 02 95% ON ROOM AIR.
[2018-10-12] MEDS: amLODIPine 5 MG TAB PO SCH (23:02)
[2018-10-13] VITALS: BP 177/94
--- NOTE | 2018-10-13 | NUR ---
PT C/O SEVERE PAIN AND WAS GIVEN PRN/IVP MORPHINE ORDERED. V/S FOLLOWS T 98.0 P 89 R 18 B/P 177/94 02 92% ON ROOM AIR. WILL REDO B/P BECAUSE PT WAS GIVEN HTN MEDS , BUT NOW SHE IS SEVERE PAIN WILL MONITOR FOR EFFECT.
--- NOTE | 2018-10-13 03:53 | NUR ---
PT IN BED ASLEEP NO S/S OF PAIN OR DISTRESS NOTED. IV INTACT AND RUNNING N/S AT 60MLS/HR ORDERED.
--- NOTE | 2018-10-13 05:29 | NUR ---
PT REFUSED BLOOD DRAWS AT THIS TIME SAYING SHE DIDN'T GET TO SLEEP UNTIL 4 AM. SHE SAID SHE WOULD BE OK WITH A BLOOD DRAW LATER.
[2018-10-13] MEDS: GABAPENTIN 300 MG CAP PO SCH ×3 (05:31→21:53)
[2018-10-13] MEDS: oxyCODONE 10 MG TABER PO SCH ×3 (05:32→21:53)
[2018-10-13] MEDS: BLOOD GLUCOSE MONITORING 1 DEV DEV FS SCH ×4 (05:37→21:00)
--- NOTE | 2018-10-13 07:00 | NUR ---
PT IN BED QUIET NO C/O VOICED. IV SITES INTACT AND FLUSHED PATENT. PT F/S IS 108, NO HUMALOG COVERAGE NEEDED. WILL ENDORSE PLAN OF CARE AT BEDSIDE. PT IN BED WITH SIDE RAILS AND WANTING DOOR CLOSED SO THAT SHE CAN REST FOR A LITTLE WHILE.
--- NOTE | 2018-10-13 07:02 | NUR ---
RECEIVED BEDSIDE REPORT FROM SURJIT COLEMAN. PT STABLE, SLEEPING, BUT EASILY AROUSABLE. NO SIGNS OF DISTRESS NOTED. NO REDNESS, SWELLING, OR INFLAMMATION NOTED ON IV SITE. CALL VELIZ WITHIN REACH. BED IN LOWEST POSITION. SAFETY MEASURES IN PLACE. PLAN OF CARE REVIEWED.
--- NOTE | 2018-10-13 07:03 | NUR ---
PT IN STABLE CONDITION ALL REQUESTED NEEDS ATTENDED AND CALL VELIZ IN REACH.
[2018-10-13 08:00] VITALS: BP 167/88
[2018-10-13] MEDS: metFORMIN 500 MG TAB PO SCH ×4 (08:00→16:49)
[2018-10-13] MEDS: MORPHINE SULFATE 2 MG/ML SYR IVP PRN ×2 (08:18→16:49)
--- NOTE | 2018-10-13 08:18 | NUR ---
ADMINISTERED PRN MORPHINE FOR 10/10 BACK PAIN, PT TOLERATED WELL. BG CHECKED, 53, MADE DR ARCE AWARE. HELD SCHEDULED METFORMIN PER DR ARCE. GAVE PATIENT ORANGE JUICE AND CRACKERS. WILL CONTINUE TO MONITOR.
[2018-10-13] MEDS: DOCUSATE SODIUM 100 MG GELCAP PO SCH ×3 (09:00→21:52)
--- NOTE | 2018-10-13 09:22 | NUR ---
SHERLYN contacted [facility] and spoke to Kenneth in admissions [phone]. Kenneth stated that [facility] is not contracted with patient's medical group: [facility]. Kenneth requested clinical information for patient and stated that a letter of agreement would be needed. Kenneth stated that he would contact medical group on behalf of the patient once clinical information is provided. KIMO faxed clinical information to [facility] [phone]. SHERLYN/KIMO will follow up as needed.
[2018-10-13] MEDS: LIDOCAINE 5% 1 EA PATCH TP SCH (09:44)
[2018-10-13] MEDS: FUROSEMIDE 40 MG TAB PO SCH (09:47)
[2018-10-13] MEDS: MONTELUKAST SODIUM 10 MG TAB PO SCH (09:47)
--- NOTE | 2018-10-13 09:47 | NUR ---
BG CHECKED, 154. ADMINISTERED SCHEDULED MEDICATIONS, PT TOLERATED WELL. NO OTHER NEEDS AT THIS TIME.
[2018-10-13] MEDS: ATORVASTATIN 20 MG TAB PO SCH (09:48)
[2018-10-13] MEDS: buPROPion 150 MG TABER PO SCH (09:48)
[2018-10-13] MEDS: METHOCARBAMOL 500 MG TAB PO SCH ×4 (09:49→21:52)
[2018-10-13] MEDS: LOSARTAN 50 MG TAB PO SCH (09:49)
[2018-10-13] MEDS: CARVEDILOL 12.5 MG TAB PO SCH ×2 (09:49→21:53)
[2018-10-13] MEDS: ASPIRIN 81 MG TAB.CHEW PO SCH (09:50)
[2018-10-13] MEDS: INSULIN LANTUS 100 UNITS/ML 10 ML VIAL SUBQ SCH ×2 (09:51→21:00)
--- NOTE | 2018-10-13 11:20 | NUR ---
PT STABLE, SITTING ON THE SIDE OF THE BED. NO OTHER NEEDS AT THIS TIME.
[2018-10-13 11:30] VITALS: BP 159/84
--- NOTE | 2018-10-13 13:17 | NUR ---
ADMINISTERED SCHEDULED MEDICATIONS, PT TOLERATED WELL. NO OTHER NEEDS AT THIS TIME.
--- NOTE | 2018-10-13 13:52 | NUR ---
10/13/18 RD INITIAL ASSESSMENT COMPLETED PLEASE REFER TO NUTRITION ASSESSMENT UNDER CARE ACTIVITY FOR ESTIMATED NUTRITIONAL NEEDS. 1. RECOMMEND CARDIAC AND CCHO 60 GM DIET TOLERATED 2. RD PROVIDED CONGESTIVE HEART FAILURE AND CONSISTENT CARBOHYDRATE NUTRITION EDUCATION. PT ACCEPTED 3. RD TO FOLLOW-UP 3-5 DAYS, MODERATE RISK KYM SORTO RD
--- NOTE | 2018-10-13 14:00 | NUR ---
INSERTED NEW IV ON LEFT FA 22G. PT TOLERATED WELL.
[2018-10-13 14:11] LABS: BASOPHILS % (AUTO) 0.2 % (0.0-2.0); EOSINOPHILS # (AUTO) 0.5 K/uL (0-0.4); EOSINOPHILS % (AUTO) 5.8 % (0.0-4.0); HEMATOCRIT 36.8 % (36-48); HEMOGLOBIN 12.4 g/dL (12.0-16.0); LYMPHOCYTES # (AUTO) 2.2 K/uL (2.5-16.5); LYMPHOCYTES % (AUTO) 24.9 % (20.5-51.1); MEAN CORPUSCULAR HEMOGLOBIN 30 pg (27-31); MEAN CORPUSCULAR HGB CONC 34 g/dL (33-37); MEAN CORPUSCULAR VOLUME 88.4 fL (80-94); MONOCYTES # (AUTO) 0.5 K/uL (0.8-1.0); MONOCYTES % (AUTO) 5.8 % (1.7-9.3); NEUTROPHILS # (AUTO) 5.6 K/uL (1.8-7.7); NEUTROPHILS % (AUTO) 63.3 % (42.2-75.2); PLATELET COUNT (AUTO) 311 K/uL (140-450); RED BLOOD CELL COUNT(AUTO) 4.17 MIL/uL (4.20-5.40); RED CELL DISTRIBUTION WIDTH 14.2 % (11.6-13.7); WHITE BLOOD COUNT (AUTO) 8.8 K/uL (4.8-10.8)
[2018-10-13 14:33] LABS: MAGNESIUM 1.8 mg/dL (1.8-2.4); PHOSPHORUS 2.5 mg/dL (2.5-4.9)
--- NOTE | 2018-10-13 15:12 | NUR ---
FAMILY AT THE BEDSIDE. NO NEEDS AT THIS TIME.
[2018-10-13 16:00] VITALS: BP 138/86
--- NOTE | 2018-10-13 16:05 | NUR ---
Discharge Planning: SHERLYN called Kayley, Site Reliability Engineer of [facility], regarding [facility] referral. SHERLYN left voicemail to Kayley. SHERLYN called Aleksandra, Site Reliability Engineer of [facility], . Aleksandra stated that patient would be able to go to SNFs within network. Aleksandra stated that Kayley would be able to assist in finding a SNF for patient. SHERLYN informed Aleksandra that he called the SNFs provided by Kayley, and no SNFs had available beds. Aleksandra stated she would speak to Kayley regarding SNF authorization. Aleksandra also stated that letters of agreements (FELICIA) are not made with SNFs by their department and that family would have to pay out of pocket if an out of network SNF was chosen. SHERLYN/KIMO will follow up as needed.
--- NOTE | 2018-10-13 16:53 | NUR ---
ADMINISTERED SCHEDULED MEDICATIONS AND PRN MORPHINE FOR 10/10 SIDE AND BACK PAIN, PT TOLERATED WELL. NO OTHER NEEDS AT THIS TIME.
--- NOTE | 2018-10-13 17:20 | NUR ---
PT STABLE, RESTING IN BED. NO NEEDS AT THIS TIME.
--- NOTE | 2018-10-13 19:20 | NUR ---
ENDORSED PT TO SURJIT CURIEL FOR CONTINUITY OF CARE. PT STABLE.
--- NOTE | 2018-10-13 19:20 | NUR ---
RECEIVED REPORT FROM AM SHIFT NURSE FOR CONTINUITY OF CARE. PATIENT IS SITTING UP IN BED, AWAKE, ALERT, ORIENTED, AMBULATORY. PATIENT IS ON ROOM AIR, WITH 22 GA IV ACCESS ON LEFT FOREARM WITH NORMAL SALINE RUNNING AT 60 ML/HR. PATIENT STATES TOLERABLE PAIN MANAGED WITH SCHEDULED MEDICATIONS. WILL MONITOR PATIENT THROUGHOUT SHIFT.
--- NOTE | 2018-10-13 19:52 | NUR ---
GAVE PATIENT INCENTIVE SPIROMETER TO HELP HER TAKE DEEP BREATHS DUE TO HER SIDE PAIN
[2018-10-13] MEDS: NACL 0.9% 1,000 ML IV SCH (21:07)
[2018-10-13] MEDS: amLODIPine 5 MG TAB PO SCH (21:52)
--- NOTE | 2018-10-13 21:52 | NUR ---
ASSISTED PATIENT BACK TO HER BED. ADMINISTERED PM MEDICATIONS ORDERED. PATIENT TOLERATED THEM WELL. WILL CONTINUE TO MONITOR PATIENT.
[2018-10-14] VITALS: BP 122/74
--- NOTE | 2018-10-14 | NUR ---
VITAL SIGNS TAKEN AND CHARTED. PATIENT STATES DISCOMFORT BUT TOLERABLE PAIN. WILL CONTINUE TO MONITOR PATIENT.
--- NOTE | 2018-10-14 02:00 | NUR ---
MADE ROUNDS. PATIENT LYING DOWN IN BED, APPEARS TO BE ASLEEP, WITH NO SIGNS OF DISTRESS.
--- NOTE | 2018-10-14 04:30 | NUR ---
PATIENT SITTING UP IN BED, DOING CROSSWORD PUZZLE, PATIENT STATED PAIN IS INCREASING. WILL MEDICATED PATIENT ORDERED.
[2018-10-14] MEDS: GABAPENTIN 300 MG CAP PO SCH ×2 (05:00→13:30)
[2018-10-14] MEDS: oxyCODONE 10 MG TABER PO SCH ×3 (05:00→17:43)
[2018-10-14] MEDS: BLOOD GLUCOSE MONITORING 1 DEV DEV FS SCH ×3 (05:17→16:30)
--- NOTE | 2018-10-14 05:17 | NUR ---
BLOOD SUGAR CHECKED AND CHARTED, WITH RESULT OF 77, NO COVERAGE NEEDED. ADMINISTERED SCHEDULED PO PAIN MEDICATION ORDERED. WILL CONTINUE TO MONITOR PATIENT.
[2018-10-14] MEDS: KETOROLAC 15 MG/ML VIAL IVP PRN ×2 (06:33→17:43)
--- NOTE | 2018-10-14 06:39 | NUR ---
ADMINISTERED PAIN MEDICATION IV PUSH ORDERED. PATIENT TOLERATED IT WELL. WILL CONTINUE TO MONITOR PATIENT.
--- NOTE | 2018-10-14 07:16 | NUR ---
ENDORSED PATIENT TO AM SHIFT NURSE FOR CONTINUITY OF CARE. PATIENT IS LYING DOWN, RESTING, WITH NO COMPLAINS OF PAIN. MEDICATION GIVEN STARTING TO BE EFFECTIVE.
--- NOTE | 2018-10-14 07:17 | NUR ---
RECEIVED REPORT FROM FOREST SUPERVISOR RN, PATIENT RESTING IN BED. SLEEPY. INTRODUCED MYSELF AND STATED I WOULD RETURN LATER TO TAKE VITALS AND ADMINISTER HER MORNING MEDS. PATIENT NEEDS MET AT THIS TIME.
[2018-10-14] MEDS: INSULIN LANTUS 100 UNITS/ML 10 ML VIAL SUBQ SCH (09:00)
--- NOTE | 2018-10-14 10:00 | NUR ---
ENTERED PATIENT ROOM TO ADMINISTER 0900 MEDS AND TAKE VITALS. PATIENT IN BATHROOM. PATIENT STATED SHE WAS DISPLEASED WITH BREAKFAST AND WANTED A NEW TRAY. CALLED [facility], BUT NO LONGER SERVING BREAKFAST. OFFERED PATIENT SANDWICH CHOICES. PATIENT ASKED THAT I RETURN AFTER SHE WAS DONE USING THE BATHROOM. LABELED. BAGGED ALL PULLED MEDICATIONS AND PLACED IN PATIENT CASSETTE.
--- NOTE | 2018-10-14 11:15 | NUR ---
ENTER PATIENTS ROOM TO ADMINISTER 0900 MEDICATIONS. PATIENT STATED THAT SHE HAD PAIN. EXPLAINED THAT THE ONLY PAIN MEDICATION AVAILABLE AT THIS TIME WAS NORCO, PATIENT AGREED. LEFT ROOM, WITH MEDS, TO RETRIEVE NORCO.
[2018-10-14] MEDS: ASPIRIN 81 MG TAB.CHEW PO SCH (11:22)
[2018-10-14] MEDS: metFORMIN 500 MG TAB PO SCH ×2 (11:22→17:42)
[2018-10-14] MEDS: LOSARTAN 50 MG TAB PO SCH (11:23)
[2018-10-14] MEDS: MONTELUKAST SODIUM 10 MG TAB PO SCH (11:23)
[2018-10-14] MEDS: ATORVASTATIN 20 MG TAB PO SCH (11:23)
[2018-10-14] MEDS: buPROPion 150 MG TABER PO SCH (11:23)
[2018-10-14] MEDS: CARVEDILOL 12.5 MG TAB PO SCH (11:24)
[2018-10-14] MEDS: METHOCARBAMOL 500 MG TAB PO SCH ×3 (11:24→17:43)
[2018-10-14] MEDS: FUROSEMIDE 40 MG TAB PO SCH (11:25)
[2018-10-14] MEDS: DOCUSATE SODIUM 100 MG GELCAP PO SCH (11:25)
[2018-10-14] MEDS: LIDOCAINE 5% 1 EA PATCH TP SCH (11:35)
--- NOTE | 2018-10-14 11:35 | NUR ---
ADMINISTERED SCHEDULED MEDICATIONS AND PRN NORCO. REVIEWED ALL MEDICATIONS WITH PATIENT, STATING MEDICATION, DOSE, AND PURPOSE. PATIENT WAS FAMILY WITH ALL MEDICATIONS AND AGREED TO TAKE ALL MEDIATIONS. ASKED PATIENT IF SHE WANTED TO TAKE THEM SEPARATELY, SHE DID NOT REPLY. OPENED ALL PILL FORM MEDICATIONS INTO A SINGLE CUP, 13 TABLETS. PATIENT TOOK PHOTO OF CUP OF MEDS. PATIENT TOLERATED ALL ORAL MEDICATIONS. PATIENT ACCEPTED LIDOCAINE PATCH. PATIENT REFUSED THE HEPARIN SUB Q UNLESS SHE COULD ADMINISTER HERSELF. HEPARIN WAS ALREADY DRAWN. I NON-ADMINISTERED THE HEPARIN AND DISCARDED INTO SHARPS CONTAINER. PATIENT BED WAS ELEVATED, EDUCATED PATIENT ON NEED TO MAINTAIN LOW POSITION, PATIENT STATED THAT SHE PREFERS TO ENTER AND EXIT AT THIS HEIGHT DUE TO RIB PAIN. NO SIGNS OF DISTRESS ON RA NOTED.
--- NOTE | 2018-10-14 12:45 | NUR ---
PATIENT SLEEPING. NO SIGNS OF DISTRESS. WILL CONTINUE TO MONITOR.
--- NOTE | 2018-10-14 13:13 | NUR ---
Livestock Auctioneer Note: I spoke with Kayley, Time Clock Repairer of [facility] to discuss snf placement. Per Kayley, I need to contact [facility] for letter of agreement (FELICIA). She told me that patient has the option to go to a penitentiary facility located in [facility] if she disenrolls from [facility]. Kayley stated I can contact [facility] for bed availability. I called Time Clock Repairer Kevan from [facility] [phone], no answer, left message. I also called Time Clock Repairer Alondra from [facility] , no answer, left message. Addendum: 10/14/18 at 1335 by Kusum Espinosa SS I called and left a message for admission coordinator at [facility] .
--- NOTE | 2018-10-14 13:45 | NUR ---
ADMINISTERED SCHEDULED MEDICATIONS. PATIENT REQUESTED TO SELF ADMINISTER THE HEPARIN. CHARGE NURSE AWARE. PATIENT IS DIABETIC AND FAMILIAR WITH SUB CUTANEOUS ADMINISTRATIONS. ASKED IF PATIENT PREFERRED TO DRAW THE MEDIATION. PATIENT STATED "YOU CAN DO IT.". PROVIDED PATIENT ORAL MEDICATION IN SEPARATE CUPS, ASKED IF PATIENT WANTED TO SELF ADMINISTER THE HEPARIN, SHE ALLOWED ME TO ADMINISTER IT. PATIENT TOLERATED IT WELL. NO SIGNS OF DISTRESS ON RA. CALL LIGHT IN REACH. ALL NEEDS MET AT THIS TIME.
--- NOTE | 2018-10-14 13:57 | NUR ---
Cell Assembly Pinner Note: [facility]dc Facility placement follow up: I called and spoke with admission coordinator Malaika at [facility] . She requested inquiry to be faxed to her, fax number , I faxed inquiry. Per Humera from [facility] , they do not have any female short term beds available at this time. I left a message with Roselia for admission coordinator Marlen from [facility] Jazzmine from [facility] requested inquiry to be faxed to her, fax number . I faxed inquiry. Per Vivienne from [facility] inquiry can be faxed to . I faxed inquiry.
[2018-10-14 16:00] VITALS: BP 131/66
--- NOTE | 2018-10-14 16:34 | NUR ---
Low Altitude Air Defense Gunner Note: I spoke with both Developer Support Engineer Kayley of [facility] Aleksandra Developer Support Engineer Aleksandra of [facility] via conference call. Per Kayley, she cannot assist patient with snf placement, DME, or any other services as long as she is out of network. Aleksandra told me she has contacted patient and explained to patient that she does not meet criteria for hospital bed. Aleksandra is willing to authorize [facility] services , made aware.
--- NOTE | 2018-10-14 16:45 | NUR ---
GLUCOSE WNL NO COVERAGE NEEDED. UPDATED PATIENT ON DISCHARGE PLAN. PATIENT STATES THAT THE UPDATE DID NOT MATCH WHAT SHE WAS TOLD. PUT PATIENT IN CONTACT WITH CASE MANAGEMENT.
[2018-10-14] MEDS ORDERED: METH750T5 PO (17:07)
[2018-10-14] MEDS ORDERED: OXYC10TA43 PO (17:07)
--- NOTE | 2018-10-14 17:08 | NUR ---
SPOKE WITH JUAN BOYCE [facility] ,WILL CONTINUE THE CARE TOMORROW AND WILL PROVIDE THE HOSPITAL BED RENTAL TO THE PATIENT. PT AGREED TO PAY FOR HOSPITAL BED RENTAL.
--- NOTE | 2018-10-14 17:43 | NUR ---
ADMINISTERED SCHEDULE MEDICATIONS AND OXYCONTIN PO AND TORADOL IV PER DR. QURESHI INSTRUCTIONS. PATIENT TO DISCHARGE TONIGHT. DISCHARGE PLAN IN AGREEMENT. PATIENT TO DISCHARGE HOME WITH FOLLOW UP BY [facility], BED WILL BE RENTED BY PATIENT AT DISCOUNTED RATE, RATE PROVIDED BY [facility].
[2018-10-14 18:06] VITALS: BP 131/66
[2018-10-14 18:45] VITALS: BP 131/66
--- NOTE | 2018-10-14 19:50 | NUR ---
EDUCATED PATIENT REGARDING DISCHARGE PLAN, MEDICATIONS TO CONTINUE, PATIENT HAD REMOVED IV, NO IRRITATION NOTED AT SITE, PATIENT HAD REMOVED WRIST BANDS. ENDORSED TRANSPORT OUT OF HOSPITAL TO CLOUD SOFTWARE ENGINEER RN. PATIENT IN STABLE CONDITION, DISCHARGING TO HER DAUGHTERS HOUSE.
--- NOTE | 2018-10-14 20:00 | NUR ---
DC HOME VIA WHEELCHAIR, DISCHARGE PAPERS SIGNED WITH OPAL EDDY-DAY SHIFT RN. IV OUT PER OPAL EDDY. STARCH AND PROSIZE MIXER WHEELED OUT PATIENT TO LOBBY, DAUGHTER WAITING IN LOBBY PER PATIENT.
--- NOTE | 2018-10-15 13:57 | NUR ---
Ophthalmic Technologist Note: Late entry for 10/14/18: I met with patient at bedside to discuss discharge plan. Patient had previously agreed with snf placement. However, now she stated she never did agree with snf placement and alleged no one talked to her about snf placement during this hospital admission or previous hospital admission. Patient appeared and sounded agitated. She reported she should not have been discharged with a fractured rib during previous hospital admission. She demanded a hospital bed. She told me she does not have any difficulty ambulating. She stated she only has problems getting up from bed at home. Every time I started to speak patient interrupted me. She did not give me opportunity to address her concerns. I made multiple attempts to explain to her that I was there to provide assistance and address her concerns. However, patient continued to make allegations about hospital�s staff lack of communication and misinformation given to her. I offered to contact resident MD so MD could speak with her regarding her concerns relating to fractured rib and her discharge plan options. spoke with patient regarding her concerns.
== END 2018-10-14 20:05 | disposition home health service (06) | DRG 205 ==
LOC: MED 23:02 → MTU 10-11 02:42
PROVIDERS: ADMIT General Practice; ATTEND General Practice
DX: S22.32XA Fracture of one rib, left side, initial encounter for closed fracture (principal); E11.00 Type 2 diabetes mellitus with hyperosmolarity without nonketotic hyperglycemic-hyperosmolar coma (NKHHC); E43 Unspecified severe protein-calorie malnutrition; I50.43 Acute on chronic combined systolic (congestive) and diastolic (congestive) heart failure; D68.69 Other thrombophilia; R10.9 Unspecified abdominal pain; E83.42 Hypomagnesemia; E11.9 Type 2 diabetes mellitus without complications; I11.0 Hypertensive heart disease with heart failure; I50.9 Heart failure, unspecified; J44.9 Chronic obstructive pulmonary disease, unspecified; G56.03 Carpal tunnel syndrome, bilateral upper limbs; E11.65 Type 2 diabetes mellitus with hyperglycemia; G89.4 Chronic pain syndrome; F32.9 Major depressive disorder, single episode, unspecified; M43.10 Spondylolisthesis, site unspecified; E66.01 Morbid (severe) obesity due to excess calories; D72.829 Elevated white blood cell count, unspecified; D64.9 Anemia, unspecified; E11.42 Type 2 diabetes mellitus with diabetic polyneuropathy; W17.89XA Other fall from one level to another, initial encounter; Y93.89 Activity, other specified; Y92.89 Other specified places as the place of occurrence of the external cause; Y99.8 Other external cause status; Z68.32 Body mass index [BMI] 32.0-32.9, adult
CPT/HCPCS: 36415; 71101; 80048; 82150; 82948; 83605; 83690; 83735; 83880; 84100; 84484; 85025; 85610; 85730; 87081; 93005; 96361; 96374; 96375; 96376; 97110; 97116; 97161-GP; 97530; 99285; J1644; J1815; J1885; J2270; J2405; J3475; J7030